=== PATIENT | male | born 1960 | race Caucasian/White ===

== ENCOUNTER 2025-01-31 13:20 | Emergency (ER) | payer BC, MEDICARE, SELFPAY ==
--- NOTE | 2025-01-31 13:30 | XR_ITS ---
WS: [id number] Portable AP upright chest, 01/31/2025 Clinical Data: dyspnea/cough Comparison: None. Findings: No nodules, masses or effusions are seen. The heart is normal. The pulmonary vascularity is not increased. No pneumonia or pneumothorax is seen. The aortic arch and descending thoracic aorta show tortuosity. Monitor leads are on the chest wall. XR/XR chest 1V portable [id number] Impression: Atherosclerosis.
[2025-01-31 13:32] VITALS: BP 189/125; PULSE 100; RESP 17; TEMP 36.6; O2SAT 96; BMI 30.1
--- NOTE | 2025-01-31 13:42 | ED_ITS ---
HPI - General Adult 2 General: Chief complaint: General Medical Stated complaint: high blood pressure Time Seen by Provider: 01/31/25 13:30 History of Present Illness: 64-year-old male presents emergency room with complaints of elevated blood pressure. States his blood pressure been elevated for the last week he had cataract surgery a week ago at that time they noticed blood pressure elevated and has persisted. He is a smoker for several decades. He is not having any persistent chest pain he states he feels a chest pressure at times but it is not worsened or relieved by anything he was walking around earlier today did not notice any exacerbation of it there is no accompanying shortness of breath diaphoresis or nausea. He is not currently on any antihypertensives and has not been advised in the past to take any. Associated symptoms: Deny chest pain, dyspnea or rash Related Data Previous Rx's ?Medication ?Instructions ?Recorded levothyroxine 75 mcg tablet See Rx Instructions .Route 05/29/24 .COMPLEX #90 tabs pravastatin 80 mg tablet 80 mg PO DAILY #90 tabs 05/07 12/27 amlodipine 2.5 mg tablet 2.5 mg PO DAILY #30 tabs Allergies Allergy/AdvReac Type Severity Reaction Status Date / Time No Known Allergies Allergy Verified 05/25/22 18:14 Review of Systems 2 Const: Denies: fever(s) or chills Card: Denies: chest pain Resp: Denies: dyspnea GI: Denies: abdominal pain : Denies: dysuria, urinary frequency or urinary urgency Musc: Denies: neck pain or back pain Skin/Breast: Denies: rash Physical Exam 2 Const: GENERAL APPEARANCE: cooperative ORIENTATION/CONSCIOUSNESS: Yes awake, Yes oriented to person, Yes oriented to place and Yes oriented to time HENMT: COMMON NORMALS: normocephalic, atraumatic and hearing grossly normal bilaterally HEAD & SCALP: normocephalic and atraumatic Resp: COMMON NORMALS: normal respiratory effort, No retractions, No use of accessory muscles and clear to auscultation bilaterally AUSCULTATION: clear to auscultation bilaterally Cardio: COMMON NORMALS: regular rate, regular rhythm and No murmurs present (Cardio) RATE: regular rate RHYTHM: regular rhythm GI: COMMON NORMALS: Soft to palpation and No hepatosplenomegaly present A USCULTATION: Yes normoactive bowel sounds PALPATION: Yes Soft to palpation, No Tenderness to palpation present (GI), No Guarding due to palpation present (GI) and Yes No hepatosplenomegaly present Extremity: COMMON NORMALS: normal to inspection, capillary refill normal, no clubbing, cyanosis or edema, no calf tenderness and no pedal edema OTHER: Nontender mild varicosities lower extremities more prominent on the right than the left Neuro: SENSORIUM/ORIENTATION: Yes oriented to person, Yes oriented to place and Yes oriented to time Skin: COMMON NORMALS: no rashes or lesions noted GENERAL SKIN EXAM: no rashes or lesions noted Course 2 Vital Signs: Vital signs: Vital Signs Temperature 97.8 F 01/31/25 13:32 Pulse Rate 73 01/31/25 15:19 Respiratory Rate 17 01/31/25 13:32 Blood Pressure 147/85 01/31/25 15:19 Pulse Oximetry 93 01/31/25 15:19 Oxygen Delivery Me thod Room Air 01/31/25 13:32 MDM - General Adult Medical Decision Making Blood pressure improved with medications given he states he feels much better. Will discharge him home on amlodipine 2.5 mg once daily and have him follow-up within the next 1 to 2 weeks his primary care doctor to review blood pressure control return if he has any further problems. Other laboratory test and EKG did not show any significant abnormality. Lab Data 01/31/25 13:51 01/31/25 13:51 Radiology Impressions Chest X-Ray 01/31/25 13:30 Impression: Atherosclerosis. Laboratory Results WBC 8.23 10^3/uL (3.29-11.43) 01/31/25 13:51 RBC 5.59 10^6/uL (3.85-5.65) 01/31/25 13:51 Hgb 17.20 g/dL (11.27-16.99) H 01/31/25 13:51 Hct 49.5 % (37-53) 01/31/25 13:51 MCV 88.6 fl (82-101) 01/31/25 13:51 MCH 30.8 pg (27-33) 01/31/25 13:51 MCHC 34.7 g/dL (30-55) 01/31/25 13:51 RDW 12.5 % (12.1-15.1) 01/31/25 13:51 Plt Count 246 10^3/cmm (157-399) 01/31/25 13:51 MPV 9.9 fL (7.4-10.4) 01/31/25 13:51 Neut % (Auto) 67.6 % 01/31/25 13:51 Lymph % (Auto) 23.8 % 01/31/25 13:51 [place] % (Auto) 6.6 % 01/31/25 13:51 Eos % (Auto) 0.7 % 01/31/25 13:51 Baso % (Auto) 0.7 % 01/31/25 13:51 Neut # (Auto) 5.56 10^3/uL (1.8-7.7) 01/31/25 13:51 Lymph # (Auto) 2.0 10^3/uL (0.8-4.8) 01/31/25 13:51 [place] # (Auto) 0.5 10^3/uL (0.2-0.9) 01/31/25 13:51 Eos # (Auto) 0.1 10^3/uL (0.0-0.8) 01/31/25 13:51 Baso # (Auto) 0.1 10^3/uL (0.0-0.1) 01/31/25 13:51 Nucleated RBC % (auto) 0 % 01/31/25 13:51 Nucleated RBCs # 0.0 /100WBC 01/31/25 13:51 Sodium 138 mmol/L (136-145) 01/31/25 13:51 Potassium 3.8 mmol/L (3.5-5.1) 01/31/25 13:51 Chloride 102 mmol/L (98-107) 01/31/25 13:51 Carbon Dioxide 22 mmol/L (22-29) 01/31/25 13:51 Anion Gap 17.8 (5-19) 01/31/25 13:51 BUN 10 mg/dL (8-23) 01/31/25 13:51 Creatinine 0.9 mg/dL (0.7-1.2) 01/31/25 13:51 GFR Calculation 84.4 mL/min (90-130) L 01/31/25 13:51 Glucose 140 mg/dL (65-115) H 01/31/25 13:51 Calculated Osmolality 287 mOsm/kg (285-295) 01/31/25 13:51 Calcium 8.9 mg/dL (8.5-10.5) 01/31/25 13:51 Total Bilirubin 0.4 mg/dL (0.15-1.2) 01/31/25 13:51 AST 19 U/L (0-40) 01/31/25 13:51 ALT 24 U/L (0-41) 01/31/25 13:51 Alkaline Phosphatase 62 U/L (40-130) 01/31/25 13:51 Total Protein 6.9 g/dL (6.6-8.7) 01/31/25 13:51 Albumin 3.8 g/dL (3.5-5.2) 01/31/25 13:51 Globulin 3.1 g/dL (1.3-4.6) 01/31/25 13:51 All radiology interpretation(s) finalized by discharge EKG Data EKG 1: Interpretation: Normal sinus rhythm no acute changes. Rate of 88 ME interval 167. QT 353 Computer generated interpretation: Chest X-Ray 01/31/25 13:30 Impression: Atherosclerosis. Discharge Plan Discharge Patient Disposition: Home Clinical Impression: Hypertension Condition: Stable Prescriptions: New amlodipine 2.5 mg tablet 2.5 mg PO DAILY Qty: 30 0RF No Action pravastatin 80 mg tablet 80 mg PO DAILY Qty: 90 3RF levothyroxine 75 mcg tablet See Rx Instructions .ROUTE .COMPLEX Qty: 90 3RF Dose Instruction: TAKE 1 TABLET BY MOUTH EVERY DAY 30 minutes before breakfast Rx Instructions: TAKE 1 TABLET BY MOUTH EVERY DAY 30 minutes before breakfast Discharge Orders: Discharge ED (Routine); Ordered 01/31/25 Ordered By: Ryan Villa Referrals: Yefri Martinez MD [Primary Care Provider, Family Practice] Discharge Diet: Usual diet Discharge Activity: Resume usual activity Patient Instructions: Hypertension, Opioid Safety, Pain Management Activity Restrictions/Additional Instructions: Thank you for choosing [facility] for your healthcare needs today. It is very important that you follow up as instructed or that you return to the Emergency Department should you have concerns or if your condition changes or worsens in any way. You were seen in the emergency room with elevated blood pressure. Your blood pressure improved with medications given recommend you start amlodipine 2.5 mg once daily and follow-up with your doctor within the next 1-2 weeks to reevaluate Print Language: Swedish Coding Level of Care Code ED Oncology Radiation Physician for Richie Neal
--- NOTE | 2025-01-31 13:43 | ECG_ITS ---
[facility]: 2025-01[facility]31 Pat Name: Igor Oliveros Department: Room: Gender: Male Palliative Senior Np: : 1960 Requested By: Rayn Black Order Number: [id number] Sandra MD: Matti Gaines M.D. Measurements Intervals Ida Rate: 88 P: 41 FL: 167 QRS: 1 QRSD: 99 T: 37 QT: 353 QTc: 427 Interpretive Statements SINUS RHYTHM No previous ECG available for comparison Electronically Signed On 02-05-2025 11:50:00 CDT by Matti Gaines M.D. [email or web address]
[2025-01-31] MEDS: hyDRALAzine 20 mg/mL INJ 1 mL 10 MG IVP (13:59)
[2025-01-31] MEDS: labetalol 5 mg/mL SDV 20mL 10 MG IVP (13:59)
[2025-01-31 14:03] LABS: Basophils # 0.1 10^3/uL (0.0-0.1); Basophils % 0.7 %; Eosinophils # 0.1 10^3/uL (0.0-0.8); Eosinophils % 0.7 %; Hematocrit 49.5 % (37-53); Lymphocytes % 23.8 %; Mean Corpuscular HGB Conc 34.7 g/dL (30-55); Mean Corpuscular Hemoglobin 30.8 pg (27-33); Mean Corpuscular Volume 88.6 fl (82-101); Mean Platelet Volume 9.9 fL (7.4-10.4); Monocytes # 0.5 10^3/uL (0.2-0.9); Monocytes % 6.6 %; Neutrophils # 5.56 10^3/uL (1.8-7.7); Neutrophils % 67.6 %; Nucleated Red Blood Cells % 0 %; Platelet Count 246 10^3/cmm (157-399); Red Blood Count 5.59 10^6/uL (3.85-5.65); Red Cell Distribution Width 12.5 % (12.1-15.1); White Blood Count 8.23 10^3/uL (3.29-11.43)
[2025-01-31 14:04] VITALS: BP 141/87; PULSE 73; O2SAT 93
[2025-01-31 14:31] LABS: Alanine Aminotransferase 24 U/L (0-41); Albumin Level 3.8 g/dL (3.5-5.2); Alkaline Phosphatase 62 U/L (40-130); Anion Gap 17.8 (5-19); Aspartate Amino Transferase 19 U/L (0-40); Blood Urea Nitrogen 10 mg/dL (8-23); Calcium 8.9 mg/dL (8.5-10.5); Carbon Dioxide 22 mmol/L (22-29); Chloride 102 mmol/L (98-107); Creatinine Clr Calc Pharmacy 93.5296; Globulin 3.1 g/dL (1.3-4.6); Glomerular Filtration Rate 84.4 mL/min (90-130); Glucose 140 mg/dL (65-115); Osmolality Calculated 287 mOsm/kg (285-295); Potassium 3.8 mmol/L (3.5-5.1); Sodium 138 mmol/L (136-145); Total Bilirubin 0.4 mg/dL (0.15-1.2); Total Protein 6.9 g/dL (6.6-8.7)
[2025-01-31 15:19] VITALS: BP 147/85; PULSE 73; O2SAT 93
== END 2025-01-31 15:20 | disposition home or self-care (01) ==
PROVIDERS: Emergency Provider Family Medicine; PCP Family Medicine
DX: I10 Essential (primary) hypertension (principal)
CPT/HCPCS: 36415; 71045; 80053; 85025; 93005; 96374; 96375; 99285; J0360; J3490

== ENCOUNTER → 2025-02-25 08:43 | Outpatient (BNVA) | payer MEDICARE, SELFPAY | PROVIDERS: PCP Family Medicine; Visit Provider Family Medicine | DX: E03.9 Hypothyroidism, unspecified (principal); R73.03 Prediabetes | CPT/HCPCS: 83036; 84439; 84443 ==

== ENCOUNTER → 2025-07-22 08:53 | Outpatient (BNVA) | payer MEDICARE, SELFPAY | PROVIDERS: PCP Family Medicine; Visit Provider Family Medicine | DX: Z51.81 Encounter for therapeutic drug level monitoring (principal); Z13.6 Encounter for screening for cardiovascular disorders; E11.9 Type 2 diabetes mellitus without complications; E03.9 Hypothyroidism, unspecified | CPT/HCPCS: 80053; 80061; 83036; 84439; 84443; 85025 ==